=== PATIENT | female | born 1985 | race American Indian/Alaskan Native ===

== ENCOUNTER 2016-04-10 09:50 | Emergency (ER) | payer SELFPAY ==
--- NOTE | 2016-04-10 15:11 | Emergency Department Report ---
ED Female HPI - General Chief complaint: Urogenital-Female Stated complaint: FREQUENT URINATION/HAVE IUD Time Seen by Provider: 04/10/16 15:11 Source: patient Mode of arrival: Ambulatory Limitations: No Limitations - History of Present Illness Initial comments: She reports pressure and frequency with urination that started one week ago. She reports having an IUD placed 6 months ago with an irregular menstrual cycle. She denies vaginal bleeding, hematuria, fever, dysuria or vaginal discharge MD Complaint: other (urinary frequency) Onset/Timin -: week(s) Location: perineum Radiation: non-radiating Severity: mild Severity scale (0 -10): 0 Quality: other (none) Consistency: constant Improves with: urination Worsens with: urination Are you Now?: No Associated Symptoms: denies other symptoms. denies: vaginal discharge, vaginal bleeding, abdominal pain, nausea/vomiting, fever/chills, headaches, loss of appetite, dysuria, hematuria, rash, seizure, shortness of breath, syncope, weakness - Related Data Sexually active: Yes Previous Rx's Medication Instructions Recorded Last Taken Type Nitrofurantoin [place]/M-Cryst 100 mg PO Q12HR #14 capsule 04/10/16 Unknown Rx [Macrobid CAP] Allergies Allergy/AdvReac Type Severity Reaction Status Date / Time pineapple Allergy Swelling Verified 04/10/16 10:13 morphine AdvReac Vomiting Verified 04/10/16 10:13 ED Review of Systems ROS: Stated complaint: FREQUENT URINATION/HAVE IUD Other details as noted in HPI Constitutional: denies: chills, diaphoresis, fever, malaise, weakness Respiratory: denies: cough, orthopnea, shortness of breath, SOB with exertion, SOB at rest, stridor, wheezing Cardiovascular: denies: chest pain, palpitations, dyspnea on exertion, orthopnea , edema, syncope, paroxysmal nocturnal dyspnea Gastrointestinal: denies: abdominal pain, nausea, vomiting, diarrhea, constipation, hematemesis, melena, hematochezia Genitourinary: urgency, frequency. denies: dysuria, hematuria, discharge, abnormal menses, dyspareunia Musculoskeletal: denies: back pain, joint swelling, arthralgia, myalgia Skin: denies: rash, lesions, change in color ED Past Medical Hx - Past Medical History Hx Asthma: Yes Additional medical history: MENINGITIS - Surgical History Past Surgical History?: No - Social History Smoking Status: Never Smoker Substance Use Type: None - Medications Home Medications: Home Medications Medication Instructions Recorded Confirmed Last Taken Type Nitrofurantoin [place]/M-Cryst 100 mg PO Q12HR #14 capsule 04/10/16 Unknown Rx [Macrobid CAP] ED Physical Exam - General Limitations: No Limitations General appearance: alert, in no apparent distress - ENT ENT exam: Present: normal exam, mucous membranes moist. Absent: mucous membranes dry - Respiratory Respiratory exam: Present: normal lung sounds bilaterally. Absent: respiratory distress, wheezes, rales, rhonchi, stridor, chest wall tenderness, accessory muscle use, decreased breath sounds, prolonged expiratory - Cardiovascular Cardiovascular Exam: Present: regular rate, normal rhythm, normal heart sounds. Absent: systolic murmur, diastolic murmur, rubs, gallop, clicks, JVD, S3, S4 - GI/Abdominal GI/Abdominal exam: Present: soft, normal bowel sounds. Absent: distended, tenderness, guarding, rebound, rigid - Extremities Exam Extremities exam: Present: normal inspection, full ROM, normal capillary refill. Absent: tenderness, pedal edema, joint swelling, calf tenderness - Back Exam Back exam: Present: normal inspection, full ROM. Absent: CVA tenderness (R), CVA tenderness (L) - Neurological Exam Neurological exam: Present: alert, oriented X3, CN II-XII intact, normal gait, reflexes normal. Absent: motor sensory deficit - Skin Skin exam: Present: warm, dry, intact, normal color. Absent: rash ED Course Vital Signs 04/10/16 04/10/16 10:08 15:20 Temperature 97.9 F 98.5 F Pulse Rate 81 80 Respiratory 16 20 Rate Blood Pressure 113/75 Blood Pressure 113/76 [Left] O2 Sat by Pulse 100 100 Oximetry - Reevaluation(s) Reevaluation #1: 04/10/16 15:52 laboratory study ordered ED Medical Decision Making - Lab Data Vital Signs 04/10/16 04/10/16 10:08 15:20 Temperature 97.9 F 98.5 F Pulse Rate 81 80 Respiratory 16 20 Rate Blood Pressure 113/75 Blood Pressure 113/76 [Left] O2 Sat by Pulse 100 100 Oximetry Lab Results 04/10/16 Range/Units 15:42 Urine Color Yellow (Yellow) Urine Turbidity Cloudy (Clear) Urine pH 7.0 (5.0-7.0) Ur Specific [place] 1.011 (1.003-1.030) Urine Protein 30 mg/dl (Negative) mg/dL Urine Glucose (UA) Neg (Negative) mg/dL Urine Ketones Neg (Negative) mg/dL Urine Blood Neg (Negative) Urine Nitrite Neg (Negative) Urine Bilirubin Neg (Negative) Urine Urobilinogen < 2.0 (<2.0) mg/dL Ur Leukocyte Esterase Lg (Negative) Urine WBC (Auto) 0.0 (0.0-6.0) /HPF Urine RBC (Auto) 22.0 (0.0-6.0) /HPF U Epithel Cells (Auto) 7.0 (0-13.0) /HPF Urine HCG, Qual Negative (Negative) - Medical Decision Making During the course of ED, laboratory studies were ordered. The laboratory studies were unremarkable, however patient was treated based on symptomatic of urinary urgency, frequency and a sensation of bladder fullness without abdominal pain. She was sent home with a prescription for Macrobid, instructed to follow up with the selective referral given at discharge, she verbalized understanding. - Differential Diagnosis Cystitis, Pyelonephritis, Urethritis Critical care attestation.: If time is entered above; I have spent that time in minutes in the direct care of this critically ill patient, excluding procedure time. ED Disposition Clinical Impression: Cystitis Disposition: DISCHARGED TO HOME OR SELFCARE Is pt being admited?: No Does the pt Need Aspirin: No Condition: Stable Instructions: Urinary Tract Infection in Women (ED) Additional Instructions: Take medication as directed. Follow up with the selective referrals given at discharge. Prescriptions: Nitrofurantoin [place]/M-Cryst [Macrobid CAP] 100 mg PO Q12HR #14 capsule Referrals: PRIMARY CARE, [Primary Care Provider] - 3-5 Days [facility] [Outside] - 3-5 Days Forms: Work/School Release Form(ED) Time of Disposition: 16:34
[2016-04-10 16:30] LABS: Bilirubin,Urine NEG (Negative); Blood,Urine NEG (Negative); Ketones,Urine NEG (Negative); Leukocyte Esterase,Urine LG (Negative); Nitrite,Urine NEG (Negative); Urobilinogen,Urine < 2.0 mg/dL (<2.0)
[2016-04-10 16:55] VITALS: BP 113/76
== END 2016-04-10 16:30 | disposition home or self-care (01) ==
LOC: ED 09:50
DX: N30.90 Cystitis, unspecified without hematuria (principal); J45.909 Unspecified asthma, uncomplicated
CPT/HCPCS: 81001; 81025

== ENCOUNTER 2018-06-22 13:56 | Emergency (ER) | payer MEDICAID ==
[2018-06-22] MEDS ORDERED: NACL 0.9% 1000 ML 1,000 ML IV ONE (14:07)
--- NOTE | 2018-06-22 14:07 | Emergency Department Report ---
Blank Doc - Documentation Documentation: This is a 32-year-old female that presents with dizziness. Denies any chest p ain. Denies any injury. This initial assessment/diagnostic orders/clinical plan/treatment(s) is/are subject to change based on patient's health status, clinical progression and re- assessment by fellow clinical providers in the ED. Further treatment and workup at subsequent clinical providers discretion. Patient/guardians urged not to elope from the ED as their condition may be serious if not clinically assessed and managed. Initial orders include: 1- Patient sent to [facility] for further evaluation and treatment 2- labs 3- UA 4- fluids
[2018-06-22 14:37] LABS: Basophils % (Auto) 0.9 % (0.0-1.8); Eosinophils # (Auto) 0.1 K/mm3 (0.0-0.4); Eosinophils % (Auto) 1.3 % (0.0-4.3); Hematocrit 35.3 % (30.3-42.9); Hemoglobin 11.6 gm/dl (10.1-14.3); Lymphocytes # (Auto) 1.4 K/mm3 (1.2-5.4); Lymphocytes % (Auto) 26.2 % (13.4-35.0); Mean Corpuscular HGB Conc 33 % (30-34); Mean Corpuscular Volume 78 fl (79-97); Monocytes # (Auto) 0.3 K/mm3 (0.0-0.8); Monocytes % (Auto) 5.1 % (0.0-7.3); Platelet Count 237 K/mm3 (140-440); Red Blood Count 4.55 M/mm3 (3.65-5.03); Red Cell Distribution Width 13.3 % (13.2-15.2)
[2018-06-22 14:43] LABS: Mean Corpuscular Hemoglobin 26 pg (28-32)
[2018-06-22 14:51] LABS: BUN/Creatinine Ratio 17; Blood Urea Nitrogen 10 mg/dL (7-17); Calcium 9.3 mg/dL (8.4-10.2); Hemolysis Index 32
[2018-06-22] MEDS ORDERED: NACL 0.9% 1000 ML 1,000 ML ONE (17:18)
[2018-06-22] MEDS ORDERED: ANTIVERT PO ONE (17:24)
--- NOTE | 2018-06-22 18:00 | Emergency Department Report ---
ED General Adult HPI - General Chief complaint: Dizziness Stated complaint: LIGHT HEADED/CHEST PAIN Time Seen by Provider: 06/22/18 14:06 Source: patient Mode of arrival: Ambulatory Limitations: No Limitations - History of Present Illness Initial comments: Patient presents to the emergency department with a chief complaint of dizziness and lightheadedness for the last 2 days. The patient states the symptoms are worse with standing and when turning her head. She describes spinning. Patient denies headache, chest pain, shortness of breath. -: Gradual Location: head Severity scale (0 -10): 0 Consistency: intermittent Improves with: rest Worsens with: movement Associated Symptoms: denies other symptoms Treatments Prior to Arrival: none - Related Data Previous Rx's Medication Instructions Recorded Last Taken Type Nitrofurantoin [place]/M-Cryst 100 mg PO Q12HR #14 capsule 04/10/16 Unknown Rx [Macrobid CAP] Meclizine [Antivert] 25 mg PO TID PRN #30 tablet 06/22/18 Unknown Rx Allergies Allergy/AdvReac Type Severity Reaction Status Date / Time pineapple Allergy Swelling Verified 04/10/16 10:13 morphine AdvReac Vomiting Verified 04/10/16 10:13 ED Review of Systems ROS: Stated complaint: LIGHT HEADED/CHEST PAIN Other details as noted in HPI Constitutional: denies: chills, fever Eyes: denies: eye pain, eye discharge, vision change ENT: denies: ear pain, throat pain Respiratory: denies: cough, shortness of breath, wheezing Cardiovascular: denies: chest pain, palpitations Endocrine: no symptoms reported Gastrointestinal: denies: abdominal pain, nausea, diarrhea Genitourinary: denies: urgency, dysuria, discharge Musculoskeletal: denies: back pain, joint swelling, arthralgia Skin: denies: rash, lesions Neurological: vertigo. denies: headache, weakness, paresthesias Psychiatric: denies: anxiety, depression Hematological/Lymphatic: denies: easy bleeding, easy bruising ED Past Medical Hx - Past Medical History Hx Asthma: Yes Additional medical history: MENINGITIS - Surgical History Past Surgical History?: No - Social History Smoking Status: Never Smoker Substance Use Type: None - Medications Home Medications: Home Medications Medication Instructions Recorded Confirmed Last Taken Type Nitrofurantoin [place]/M-Cryst 100 mg PO Q12HR #14 capsule 04/10/16 Unknown Rx [Macrobid CAP] Meclizine [Antivert] 25 mg PO TID PRN #30 tablet 06/22/18 Unknown Rx ED Physical Exam - General Limitations: No Limitations General appearance: alert, in no apparent distress - Head Head exam: Present: atraumatic, normocephalic - Eye Eye exam: Present: normal appearance, PERRL, EOMI - ENT ENT exam: Present: mucous membranes dry - Neck Neck exam: Present: normal inspection - Respiratory Respiratory exam: Present: normal lung sounds bilaterally. Absent: respiratory distress, wheezes, rales, rhonchi - Cardiovascular Cardiovascular Exam: Present: regular rate, normal rhythm. Absent: systolic murmur, diastolic murmur, rubs, gallop - GI/Abdominal GI/Abdominal exam: Present: soft, normal bowel sounds. Absent: distended, tenderness - Extremities Exam Extremities exam: Present: normal inspection - Back Exam Back exam: Present: normal inspection - Neurological Exam Neurological exam: Present: alert, oriented X3, CN II-XII intact, other (able to re-create symptoms with rapid head and eye movement). Absent: motor sensory deficit - Psychiatric Psychiatric exam: Present: normal affect, normal mood - Skin Skin exam: Present: warm, dry, intact, normal color. Absent: rash ED Course Vital Signs 06/22/18 06/22/18 06/22/18 14:06 17:03 17:04 Temperature 98.9 F Pulse Rate 75 Respiratory 18 Rate Blood Pressure 108/79 98/65 Blood Pressure [Left] O2 Sat by Pulse 100 99 97 Oximetry 06/22/18 06/22/18 06/22/18 17:06 17:08 17:10 Temperature Pulse Rate Respiratory Rate Blood Pressure 98/65 98/65 98/65 Blood Pressure [Left] O2 Sat by Pulse 99 98 99 Oximetry 06/22/18 06/22/18 06/22/18 17:12 17:14 17:16 Temperature Pulse Rate Respiratory Rate Blood Pressure 98/65 96/67 96/67 Blood Pressure [Left] O2 Sat by Pulse 98 99 98 Oximetry 06/22/18 06/22/18 06/22/18 17:18 17:19 17:20 Temperature Pulse Rate Respiratory Rate Blood Pressure 96/67 104/60 113/78 Blood Pressure [Left] O2 Sat by Pulse 98 98 98 Oximetry 06/22/18 06/22/1819 17:21 17:22 17:24 Temperature Pulse Rate Respiratory Rate Blood Pressure 113/78 109/82 109/82 Blood Pressure [Left] O2 Sat by Pulse 92 99 98 Oximetry 06/22/18 19:41 Temperature 98.3 F Pulse Rate 72 Respiratory 16 Rate Blood Pressure Blood Pressure 98/65 [Left] O2 Sat by Pulse 100 Oximetry ED Medical Decision Making - Lab Data Result diagrams: 06/22/18 14:10 06/22/18 14:10 Lab Results 06/22/18 06/22/18 06/22/18 Range/Units 14:10 14:10 17:23 WBC 5.4 (4.5-11.0) K/mm3 RBC 4.55 (3.65-5.03) M/mm3 Hgb 11.6 (10.1-14.3) gm/dl Hct 35.3 (30.3-42.9) % MCV 78 L (79-97) fl MCH 26 L (28-32) pg MCHC 33 (30-34) % RDW 13.3 (13.2-15.2) % Plt Count 237 (140-440) K/mm3 Lymph % (Auto) 26.2 (13.4-35.0) % [place] % (Auto) 5.1 (0.0-7.3) % Eos % (Auto) 1.3 (0.0-4.3) % Baso % (Auto) 0.9 (0.0-1.8) % Lymph # 1.4 (1.2-5.4) K/mm3 [place] # 0.3 (0.0-0.8) K/mm3 Eos # 0.1 (0.0-0.4) K/mm3 Baso # 0.0 (0.0-0.1) K/mm3 Seg Neutrophils % 66.5 (40.0-70.0) % Seg Neutrophils # 3.6 (1.8-7.7) K/mm3 Sodium 138 (137-145) mmol/L Potassium 3.5 L (3.6-5.0) mmol/L Chloride 103.6 (98-107) mmol/L Carbon Dioxide 24 (22-30) mmol/L Anion Gap 14 mmol/L BUN 10 (7-17) mg/dL Creatinine 0.6 L (0.7-1.2) mg/dL Estimated GFR > 60 ml/min BUN/Creatinine Ratio 17 % Glucose 112 H (65-100) mg/dL POC Glucose (70-105) Calcium 9.3 (8.4-10.2) mg/dL Urine Color Yellow (Yellow) Urine Turbidity Clear (Clear) Urine pH 6.0 (5.0-7.0) Ur Specific [place] 1.011 (1.003-1.030) Urine Protein <15 mg/dl (Negative) mg/dL Urine Glucose (UA) Neg (Negative) mg/dL Urine Ketones Neg (Negative) mg/dL Urine Blood Neg (Negative) Urine Nitrite Neg (Negative) Urine Bilirubin Neg (Negative) Urine Urobilinogen < 2.0 (<2.0) mg/dL Ur Leukocyte Esterase Tr (Negative) Urine WBC (Auto) 1.0 (0.0-6.0) /HPF Urine RBC (Auto) < 1.0 (0.0-6.0) /HPF U Epithel Cells (Auto) 7.0 (0-13.0) /HPF Urine Bacteria (Auto) 1+ (Negative) /HPF Urine Mucus Few /HPF Urine HCG, Qual (Negative) 06/22/18 06/22/18 Range/Units 17:23 17:23 WBC (4.5-11.0) K/mm3 RBC (3.65-5.03) M/mm3 Hgb (10.1-14.3) gm/dl Hct (30.3-42.9) % MCV (79-97) fl MCH (28-32) pg MCHC (30-34) % RDW (13.2-15.2) % Plt Count (140-440) K/mm3 Lymph % (Auto) (13.4-35.0) % [place] % (Auto) (0.0-7.3) % Eos % (Auto) (0.0-4.3) % Baso % (Auto) (0.0-1.8) % Lymph # (1.2-5.4) K/mm3 [place] # (0.0-0.8) K/mm3 Eos # (0.0-0.4) K/mm3 Baso # (0.0-0.1) K/mm3 Seg Neutrophils % (40.0-70.0) % Seg Neutrophils # (1.8-7.7) K/mm3 Sodium (137-145) mmol/L Potassium (3.6-5.0) mmol/L Chloride (98-107) mmol/L Carbon Dioxide (22-30) mmol/L Anion Gap mmol/L BUN (7-17) mg/dL Creatinine (0.7-1.2) mg/dL Estimated GFR ml/min BUN/Creatinine Ratio % Glucose (65-100) mg/dL POC Glucose 99 (70-105) Calcium (8.4-10.2) mg/dL Urine Color (Yellow) Urine Turbidity (Clear) Urine pH (5.0-7.0) Ur Specific [place] (1.003-1.030) Urine Protein (Negative) mg/dL Urine Glucose (UA) (Negative) mg/dL Urine Ketones (Negative) mg/dL Urine Blood (Negative) Urine Nitrite (Negative) Urine Bilirubin (Negative) Urine Urobilinogen (<2.0) mg/dL Ur Leukocyte Esterase (Negative) Urine WBC (Auto) (0.0-6.0) /HPF Urine RBC (Auto) (0.0-6.0) /HPF U Epithel Cells (Auto) (0-13.0) /HPF Urine Bacteria (Auto) (Negative) /HPF Urine Mucus /HPF Urine HCG, Qual Negative (Negative) - Medical Decision Making Discussed results with the patient Symptoms improved with IV fluids and Antivert Critical care attestation.: If time is entered above; I have spent that time in minutes in the direct care of this critically ill patient, excluding procedure time. ED Disposition Clinical Impression: Dehydration, Vertigo Disposition: DC- TO HOME OR SELFCARE Is pt being admited?: No Does the pt Need Aspirin: No Condition: Stable Instructions: Dehydration (ED), Vertigo (ED) Additional Instructions: return if worse Referrals: BETH OSWALD MD [Primary Care Provider] - 3-5 Days [facility] [Provider Group] - 3-5 Days [facility] [Provider Group] - 3-5 Days NONA CUNNINGHAM DO [Staff Physician] - 3-5 Days Time of Disposition: 19:57
[2018-06-22] MEDS ORDERED: ZOFRAN ONE (18:12)
[2018-06-22 18:37] LABS: Bacteria,Urine 1+ /HPF (Negative); Bilirubin,Urine NEG (Negative); Blood,Urine NEG (Negative); Color,Urine Yellow (Yellow); Mucus,Urine FEW /HPF; Protein,Urine <15 mg/dL mg/dL (Negative); RBC,Urine < 1.0 /HPF (0.0-6.0); Urobilinogen,Urine < 2.0 mg/dL (<2.0)
[2018-06-22 18:49] LABS: HCG Qualitative,Urine Negative (Negative)
[2018-06-22] MEDS ORDERED: ZOFRAN IV ONE (18:55)
[2018-06-22 19:42] VITALS: BP 98/65
[2018-06-22] MEDS ORDERED: TYLENOL PO ONE (20:05)
[2018-06-22] MEDS ORDERED: TYLENOL ONE (20:08)
== END 2018-06-22 20:18 | disposition home or self-care (01) ==
LOC: ED 13:56
DX: E86.0 Dehydration (principal); R42 Dizziness and giddiness; J45.909 Unspecified asthma, uncomplicated; Z91.018 Allergy to other foods; Z88.5 Allergy status to narcotic agent
CPT/HCPCS: 36415; 80048; 81001; 81025; 82962; 85025; 96361; 96374; 99284; J2405; J7030

== ENCOUNTER 2019-09-29 19:47 | Emergency (ER) | payer MEDICAID ==
[2019-09-29 20:51] LABS: Hematocrit 33.8 % (30.3-42.9); Hemoglobin 11.3 gm/dl (10.1-14.3); Mean Corpuscular HGB Conc 34 % (30-34); Mean Corpuscular Volume 76 fl (79-97); Platelet Count 207 K/mm3 (140-440); Red Blood Count 4.45 M/mm3 (3.65-5.03); Red Cell Distribution Width 13.2 % (13.2-15.2)
--- NOTE | 2019-09-29 20:53 | XRay Report ---
CHEST 2 VIEWS INDICATION / CLINICAL INFORMATION: Difficulty breathing. COMPARISON: None available. FINDINGS: SUPPORT DEVICES: None. HEART / MEDIASTINUM: No significant abnormality. LUNGS / PLEURA: No significant pulmonary or pleural abnormality. No pneumothorax. ADDITIONAL FINDINGS: No significant additional findings. IMPRESSION: 1. No acute findings. Signer Name: Nathan Madrigal MD Signed: 09/29/2019 8:48 PM Workstation Name: [id number]
[2019-09-29 21:10] LABS: Alanine Aminotransferase 15 units/L (7-56); Albumin 4.5 g/dL (3.9-5); BUN/Creatinine Ratio 18; Blood Urea Nitrogen 9 mg/dL (7-17); Calcium 8.8 mg/dL (8.4-10.2); Hemolysis Index 6
--- NOTE | 2019-09-29 21:33 | Emergency Department Report ---
ED General Adult HPI - General Chief complaint: Dyspnea/Respdistress Stated complaint: GEO/ASTHMA PUI?: Yes Time Seen by Provider: 09/29/19 21:28 Source: patient Mode of arrival: Wheelchair Limitations: No Limitations - History of Present Illness Initial comments: Chief complaint: I just feel nauseous HPI: This is a 34-year-old female with history of asthma who has had shortness of breath generalized weakness nonproductive cough. Subjective fever. Children had similar symptoms. She then subsequently developed similar symptoms. Children were negative for COVID. Patient had previous history of meningitis. Patient requests refill of albuterol nebulizer solution. -: Gradual, days(s) (Several days) Consistency: constant Improves with: none Worsens with: none Associated Symptoms: malaise, other (Subjective fever, cough, nausea mild headache) - Related Data Previous Rx's Medication Instructions Recorded Last Taken Type Nitrofurantoin [place]/M-Cryst 100 mg PO Q12HR #14 capsule 04/10/16 Unknown Rx [Macrobid CAP] Meclizine [Antivert] 25 mg PO TID PRN #30 tablet 06/22/18 Unknown Rx Promethazine HCl [Promethazine TAB] 12.5 mg PO Q4H PRN #10 tablet 09/29/19 Unknown Rx Allergies Allergy/AdvReac Type Severity Reaction Status Date / Time pineapple Allergy Swelling Verified 04/10/16 10:13 morphine AdvReac Vomiting Verified 04/10/16 10:13 ED Review of Systems ROS: Stated complaint: GEO/ASTHMA Other details as noted in HPI Comment: All other systems reviewed and negative Constitutional: fever, malaise Respiratory: cough Gastrointestinal: nausea Neurological: headache ED Past Medical Hx - Past Medical History Previous Medical History?: Yes Hx Heart Attack/AMI: Yes Hx Asthma: Yes Additional medical history: MENINGITIS - Surgical History Past Surgical History?: No - Social History Smoking Status: Never Smoker Substance Use Type: None - Medications Home Medications: Home Medications Medication Instructions Recorded Confirmed Last Taken Type Nitrofurantoin [place]/M-Cryst 100 mg PO Q12HR #14 capsule 04/10/16 Unknown Rx [Macrobid CAP] Meclizine [Antivert] 25 mg PO TID PRN #30 tablet 06/22/18 Unknown Rx Promethazine HCl [Promethazine TAB] 12.5 mg PO Q4H PRN #10 tablet 09/29/19 Unknown Rx ED Physical Exam - General Limitations: No Limitations General appearance: alert, in no apparent distress, other (Patient appears well nontoxic no acute distress) - Head Head exam: Present: atraumatic, normocephalic, normal inspection - Eye Eye exam: Present: normal appearance - ENT ENT exam: Present: mucous membranes moist - Neck Neck exam: Present: normal inspection, full ROM. Absent: tenderness - Respiratory Respiratory exam: Present: normal lung sounds bilaterally. Absent: respiratory distress, wheezes, rales, rhonchi - Cardiovascular Cardiovascular Exam: Present: regular rate, normal rhythm, normal heart sounds. Absent: systolic murmur, diastolic murmur, rubs, gallop - GI/Abdominal GI/Abdominal exam: Present: soft, normal bowel sounds. Absent: distended, tenderness, guarding, rebound - Extremities Exam Extremities exam: Present: normal inspection - Neurological Exam Neurological exam: Present: alert, oriented X3 - Psychiatric Psychiatric exam: Present: normal affect, normal mood - Skin Skin exam: Present: warm, dry, intact, normal color. Absent: rash ED Course Vital Signs 09/29/19 19:54 Temperature 98.3 F Pulse Rate 83 Respiratory 18 Rate Blood Pressure 113/83 O2 Sat by Pulse 100 Oximetry ED Medical Decision Making - Lab Data Result diagrams: 09/29/19 20:38 09/29/19 20:38 - EKG Data -: EKG Interpreted by Ne EKG shows normal: sinus rhythm, axis, intervals, QRS complexes, ST-T waves Rate: normal - EKG Data Interpretation: normal EKG - Radiology Data Radiology results: report reviewed Chest radiograph: No acute findings according to radiology impression - Medical Decision Making Viral syndrome: Possibility of COVID-19 infection. Patient received prescription for symptomatic treatment promethazine, albuterol nebulizer soluti on. Critical care attestation.: If time is entered above; I have spent that time in minutes in the direct care of this critically ill patient, excluding procedure time. ED Disposition Clinical Impression: Viral syndrome Disposition: DC-01 TO HOME OR SELFCARE Is pt being admited?: No Does the pt Need Aspirin: No Condition: Stable Additional Instructions: Please self isolate self quarantine for the next 14 days or until you receive a negative COVID-19 test. Prescriptions: Promethazine HCl [Promethazine TAB] 12.5 mg PO Q4H PRN #10 tablet PRN Reason: Nausea Referrals: ILA KOCH MD [Staff Physician] - as needed Forms: Work/School Release Form(ED)
[2019-09-29 22:05] VITALS: BP 102/72
== END 2019-09-29 22:05 | disposition home or self-care (01) ==
LOC: ED 19:47
DX: B34.9 Viral infection, unspecified (principal); I25.2 Old myocardial infarction; J45.909 Unspecified asthma, uncomplicated; Z79.899 Other long term (current) drug therapy; Z88.6 Allergy status to analgesic agent; Z91.018 Allergy to other foods
CPT/HCPCS: 36415; 71046; 80053; 84484; 85027; 93005

== ENCOUNTER 2020-04-23 08:08 | Emergency (ER) | payer MEDICAID ==
[2020-04-23 08:18] VITALS: BP 99/71
--- NOTE | 2020-04-23 08:26 | Emergency Department Report ---
Chief Complaint: Chest Pain Stated Complaint: CHEST PAIN Time Seen by Provider: 04/23/20 08:23 - HPI History of Present Illness: Patient is a 34-year-old -[place] female that comes to the ER today complaining of chest pain. Is worse with movement. Patient was seen earlier in the week at the urgent care they did blood work that was all normal. They then sent her to a heart doctor where she had an evaluation in the heart doctor told her that she had no heart problems. Patient states that she cannot keep going to work late because she is having chest pain. Denies fever chills. Denies cough. Denies shortness of breath. Patient is thin. No significant past medical history. No family history. Non- smoker. Nondrinker. Denies drugs. - ROS Review of Systems: Chest pain worse with movement. No other complaints - Exam Vital Signs: Vital Signs 04/23/20 08:12 Temperature 98.3 F Pulse Rate 94 H Respiratory 16 Rate Blood Pressure 99/71 O2 Sat by Pulse 100 Oximetry Physical Exam: Alert and oriented x4. Moves all extremities. S1-S2. Lungs clear to auscultation. Abdomen soft nontender. No CVA tenderness. Ambulatory nonill nontoxic MSE screening note: Focused history and physical exam performed. Due to findings the following was ordered: No life threat. Patient being discharged home with primary care referral. Have had a long discussion with patient regarding her complaints and have educated her about getting her to the appropriate doctor to further help her determine what is causing her pain. Patient discussed with doctor:: MIKE RICHEY ED Disposition for MSE Clinical Impression: Chest wall discomfort Disposition: Z- MED SCREENING EXAM-LEFT Is pt being admited?: No Does the pt Need Aspirin: No Condition: Stable Instructions: Nonspecific Chest Pain, Adult Referrals: ILA KOCH MD [Staff Physician] - 3-5 Days Time of Disposition: 08:25
== END 2020-04-23 08:30 | disposition left against medical advice (07) ==
LOC: ED 08:08
DX: R07.89 Other chest pain (principal); Z53.21 Procedure and treatment not carried out due to patient leaving prior to being seen by health care provider

== ENCOUNTER 2020-04-23 08:36 | Emergency (ER) | payer MEDICAID | END 2020-04-23 09:20 | LOC: ED 08:36 | DX: Z53.21 Procedure and treatment not carried out due to patient leaving prior to being seen by health care provider (principal) ==